=== PATIENT | female | born 1990 | race Caucasian/White ===

== ENCOUNTER → 2016-10-22 | Outpatient (CLI) | payer BC ==
[2016-04-12 15:00] VITALS: BP 107/64
[~2016-10-22] MED LIST: ONDA4TAB7 PO; SUMA100T4 PO
--- NOTE | 2016-10-22 10:25 | RAD ---
RIBS LEFT Clinical Indication: Upper left rib pain x1 week. No known trauma. Comparison: None. Findings: 3 views of the left ribs. Cardiomediastinal silhouette is normal. Visualized lungs are clear. No pleural abnormality. Cholecystectomy clips. Nonspecific bowel gas pattern. No acute displaced left rib fracture. No bone lesion. Left shoulder joint intact. IMPRESSION: No acute findings.
== END | disposition home or self-care (01) ==
LOC: RAD 09:44
PROVIDERS: ATTEND Nurse Practitioner Family
DX: R07.81 Pleurodynia (principal)
CPT/HCPCS: 71100

== ENCOUNTER → 2017-04-11 | Outpatient (CLI) | payer BC ==
[2016-04-12 15:00] VITALS: BP 107/64
[2017-04-11 10:42] LABS: BASO % 1 % (0-3); EOS # 0.1 x10^3/uL (0.0-0.7); EOS % 1 % (0-3); HEMATOCRIT 40.7 % (36.0-47.0); HEMOGLOBIN 13.9 g/dL (12.0-15.5); LYMPH % 24 % (24-48); MEAN CORPUSCULAR HEMOGLOBIN 30 pg (25-35); MEAN CORPUSCULAR HGB CONC 34 g/dL (31-37); MEAN CORPUSCULAR VOLUME 88 fL (79-100); MONO # 0.4 x10^3/uL (0.0-1.1); MONO % 5 % (0-9); NEUT # 5.8 x10^3uL (1.8-7.7); NEUT % 70 % (31-73); PLATELET COUNT 332 x10^3/uL (140-400); RED BLOOD COUNT 4.61 x10^6/uL (3.50-5.40); RED CELL DISTRIBUTION WIDTH 16.4 % (11.5-14.5); WHITE BLOOD COUNT 8.3 x10^3/uL (4.0-11.0)
[2017-04-11 10:43] LABS: CALCIUM 9.1 mg/dL (8.5-10.1); CREATININE 0.9 mg/dL (0.6-1.0); GFR 76.3; POTASSIUM 3.7 mmol/L (3.5-5.1)
== END | disposition home or self-care (01) ==
LOC: LAB 09:54
PROVIDERS: ATTEND Physician Assistant Medical
DX: L03.211 Cellulitis of face (principal); D64.9 Anemia, unspecified
CPT/HCPCS: 36415; 80048; 85025

== ENCOUNTER 2017-08-16 09:18 | Emergency (ER) | payer BC ==
[~2017-08-16] VITALS: Ht 160 cm; Wt 71.2 kg
[2017-08-16] MEDS ORDERED: IV NORMAL SALINE 1,000ML 1,000 ML IV ONE (09:30)
[2017-08-16] MEDS ORDERED: ONDANSETRON PF 4 MG/2 ML VIAL. IV ONE (09:45)
[2017-08-16 10:04] LABS: BASO % 1 % (0-3); EOS # 0.1 x10^3/uL (0.0-0.7); EOS % 2 % (0-3); HEMATOCRIT 37.3 % (36.0-47.0); HEMOGLOBIN 12.6 g/dL (12.0-15.5); LYMPH # 2.4 x10^3/uL (1.0-4.8); LYMPH % 42 % (24-48); MEAN CORPUSCULAR HEMOGLOBIN 31 pg (25-35); MEAN CORPUSCULAR HGB CONC 34 g/dL (31-37); MEAN CORPUSCULAR VOLUME 91 fL (79-100); MONO # 0.3 x10^3/uL (0.0-1.1); MONO % 6 % (0-9); NEUT # 2.8 x10^3uL (1.8-7.7); NEUT % 50 % (31-73); PLATELET COUNT 364 x10^3/uL (140-400); RED BLOOD COUNT 4.12 x10^6/uL (3.50-5.40); RED CELL DISTRIBUTION WIDTH 13.8 % (11.5-14.5); WHITE BLOOD COUNT 5.6 x10^3/uL (4.0-11.0)
[2017-08-16 10:05] LABS: PREG TEST PT QUAL NEGATIVE (NEG)
[2017-08-16 10:11] LABS: ALBUMIN 3.7 g/dL (3.4-5.0); CALCIUM 8.8 mg/dL (8.5-10.1); CREATININE 0.8 mg/dL (0.6-1.0); GFR 86.7; POTASSIUM 3.6 mmol/L (3.5-5.1); TOTAL BILIRUBIN 0.2 mg/dL (0.2-1.0); TOTAL PROTEIN 7.4 g/dL (6.4-8.2)
[2017-08-16 10:44] LABS: BILIRUBIN,URINE NEG (NEG); CLARITY,URINE TURBID; COLOR,URINE YELLOW; GLUCOSE,URINE NEG (NEG); NITRITE,URINE NEG (NEG); UROBILINOGEN,URINE 0.2 mg/dL (0.2 mg/dL)
[2017-08-16 10:45] LABS: BACTERIA,URINE MANY /HPF (0-FEW); SQUAMOUS EPITHELIAL CELL,UR MANY /LPF; WBC,URINE 20-40 /HPF (0-4)
--- NOTE | 2017-08-16 11:21 | ED.ADGEN ---
Past History Past Medical History: Anxiety, Bipolar, Depression, GERD, Migraines, UTI Past Surgical History: Gastric Bypass Alcohol Use: None Drug Use: None Adult General Chief Complaint Chief Complaint Abdominal pain, vomiting HPI HPI Patient is a 27-year-old female with complex abdominal history occluding LAP- BAND, LAP-BAND reversal, cholecystectomy, Clare-en-Y procedure who presents with mid abdominal pain and cramping with nausea and dry heaves. Symptoms began 1 hour prior to ED arrival while at work. Patient denies hematemesis coffee- ground emesis, bilious emesis. Denies dizziness lightheadedness. No chest pain shortness of breath. No fever chills or sweats. No constipation or diarrhea. No urinary frequency urgency. Reports vaginal discharge after using Kagle balls 1 week ago. No other acute symptoms or complaints.[] Review of Systems Review of Systems ROS as per HPI. All other systems were reviewed and found to be within normal limits, except as documented in this note. Current Medications Current Medications Current Medications Medications (Trade) Dose Ordered Sig/Autumn Start Time Stop Time Status Last Admin Dose Admin Fentanyl Citrate (Fentanyl 2ml Vial) 50 mcg 1X ONCE 08/16/17 09:45 08/16/17 09:46 DC 08/16/17 10:19 50 MCG Ondansetron HCl (Zofran) 4 mg 1X ONCE 08/16/17 09:45 08/16/17 09:46 DC 08/16/17 10:10 4 MG Sodium Chloride 1,000 ml @ 1,000 mls/hr 1X ONCE 08/16/17 09:30 08/16/17 10:29 DC 08/16/17 10:04 1,000 MLS/HR Allergies Allergies Allergies Coded Allergies Type Severity Reaction Last Updated Verified No Known Drug Allergies 08/16/17 No Physical Exam Physical Exam Constitutional: Well developed, well nourished, anxious. [] HENT: Normocephalic, atraumatic, bilateral external ears normal, oropharynx moist, nose normal. [] Eyes: PERRL. [] Neck: Normal range of motion. [] Cardiovascular:Heart rate regular rhythm, no murmur. [] Lungs & Thorax: Bilateral breath sounds clear to auscultation. [] Abdomen: Bowel sounds normal, soft, no tenderness. [] : Milky vaginal discharge, no lesions, minimal tenderness. [] Back: No tenderness. [] Extremities: No tenderness. [] Neurologic: Alert and oriented X 3, normal motor function, normal sensory function, no focal deficits noted. [] Psychologic: Affect normal, judgement normal, mood normal. [] Current Patient Data Vital Signs Vital Signs Date Time Temp Pulse Resp B/P (MAP) Pulse Ox O2 Delivery O2 Flow Rate FiO2 08/16/17 11:40 64 14 101/57 (72) 99 08/16/17 10:19 Room Air 08/16/17 09:30 97.4 Lab Results Laboratory Tests Test 08/16/17 09:40 08/16/17 10:00 White Blood Count 5.6 x10^3/uL (4.0-11.0) Red Blood Count 4.12 x10^6/uL (3.50-5.40) Hemoglobin 12.6 g/dL (12.0-15.5) Hematocrit 37.3 % (36.0-47.0) Mean Corpuscular Volume 91 fL (79-100) Mean Corpuscular Hemoglobin 31 pg (25-35) Mean Corpuscular Hemoglobin Concent 34 g/dL (31-37) Red Cell Distribution Width 13.8 % (11.5-14.5) Platelet Count 364 x10^3/uL (140-400) Neutrophils (%) (Auto) 50 % (31-73) Lymphocytes (%) (Auto) 42 % (24-48) Monocytes (%) (Auto) 6 % (0-9) Eosinophils (%) (Auto) 2 % (0-3) Basophils (%) (Auto) 1 % (0-3) Neutrophils # (Auto) 2.8 x10^3uL (1.8-7.7) Lymphocytes # (Auto) 2.4 x10^3/uL (1.0-4.8) Monocytes # (Auto) 0.3 x10^3/uL (0.0-1.1) Eosinophils # (Auto) 0.1 x10^3/uL (0.0-0.7) Basophils # (Auto) 0.0 x10^3/uL (0.0-0.2) Sodium Level 139 mmol/L (136-145) Potassium Level 3.6 mmol/L (3.5-5.1) Chloride Level 105 mmol/L (98-107) Carbon Dioxide Level 28 mmol/L (21-32) Anion Gap 6 (6-14) Blood Urea Nitrogen 14 mg/dL (7-20) Creatinine 0.8 mg/dL (0.6-1.0) Estimated GFR (Cockcroft-Gault) 86.7 BUN/Creatinine Ratio 18 (6-20) Glucose Level 70 mg/dL (70-99) Calcium Level 8.8 mg/dL (8.5-10.1) Total Bilirubin 0.2 mg/dL (0.2-1.0) Aspartate Amino Transferase (AST) 17 U/L (15-37) Alanine Aminotransferase (ALT) 20 U/L (14-59) Alkaline Phosphatase 75 U/L (46-116) Total Protein 7.4 g/dL (6.4-8.2) Albumin 3.7 g/dL (3.4-5.0) Albumin/Globulin Ratio 1.0 (1.0-1.7) Lipase 297 U/L (73-393) Serum Test, Qualitative Negative (NEG) Urine Collection Type Unknown Urine Color Yellow Urine Clarity Turbid Urine pH 7.5 Urine Specific [place] 1.025 Urine Protein 30 mg/dl (NEG-TRACE) Urine Glucose (UA) Neg mg/dL (NEG) Urine Ketones (Stick) Neg mg/dL (NEG) Urine Blood Small (NEG) Urine Nitrite Neg (NEG) Urine Bilirubin Neg (NEG) Urine Urobilinogen Dipstick 0.2 mg/dL (0.2 mg/dL) Urine Leukocyte Esterase Small (NEG) Urine RBC 3-5 /HPF (0-2) Urine WBC 20-40 /HPF (0-4) Urine Squamous Epithelial Cells Many /LPF Urine Bacteria Many /HPF (0-FEW) Microbiology 08/16/17 Wet Prep - Final, Complete EKG EKG [] Radiology/Procedures Radiology/Procedures [] Course & Med Decision Making Course & Med Decision Making Pertinent Labs and Imaging studies reviewed. (See chart for details) [Abdominal pain and nausea with dry heaving. Symptoms resolved in the emergency department treatment. Lab work reviewed and is reassuring. Recommend follow-up with PCP for vaginal culture results. Her precautions reviewed] Final Impression Final Impression [Abdominal pain, Nausea and vomiting Vaginal discharge] Problems: Dragon Disclaimer Dragon Disclaimer This electronic medical record was generated, in whole or in part, using a voice recognition dictation system. MONICA ARGUETA DO Aug 16, 2017 11:21
--- NOTE | 2017-08-16 13:02 | RAD ---
CHEST AP ONLY History: COUGH Comparison: None. Findings: Single view of the chest is submitted. There is no infiltrate, pneumothorax, or effusion. The pericardial cardiac silhouette is within normal limits in size. Impression: 1. There is no radiographic evidence of acute cardiopulmonary disease. Electronically signed by: German Abbasi MD (08/16/2017 12:58 PM) [id number]
[2017-08-16 13:14] VITALS: BP 113/53
== END 2017-08-16 13:15 | disposition home or self-care (01) ==
LOC: ER 09:18
DX: N89.8 Other specified noninflammatory disorders of vagina (principal); R10.9 Unspecified abdominal pain; R11.2 Nausea with vomiting, unspecified; F41.9 Anxiety disorder, unspecified; F31.9 Bipolar disorder, unspecified; K21.9 Gastro-esophageal reflux disease without esophagitis; G43.909 Migraine, unspecified, not intractable, without status migrainosus; Z87.440 Personal history of urinary (tract) infections; Z98.84 Bariatric surgery status
CPT/HCPCS: 36415; 71045; 80053; 81001; 83690; 84703; 85025; 87070; 87086; 96361; 96374; 96375; 99285; J2405; J3010; Q0111; J7030

== ENCOUNTER 2017-10-04 09:24 | Emergency (ER) | payer BC ==
[2017-10-04] MEDS ORDERED: DOXY100T PO (09:52)
[2017-10-04] MEDS ORDERED: ACYC800T PO ×2 (09:52→09:59)
[2017-10-04] MEDS ORDERED: MUPI15CR TP ×2 (09:52→09:59)
--- NOTE | 2017-10-04 09:52 | PHYS DOC ---
Past History Past Medical History: Anxiety, Hypotension, MRSA Past Surgical History: Gastric Bypass Alcohol Use: None Drug Use: None Adult General Chief Complaint Chief Complaint: WOUND CHECK HPI HPI Patient is a 27-year-old female who presents to the emergency department for evaluation of a wound on her chest wall. She states that for the past 5 days she developed a wound on the anterior aspect of her chest wall, which she states she initially thought was just a simple staph infection as she has had these before. But the wound has ruptured, and formed somewhat of a crater. The wound is approximately Rubi sized. There is mild surrounding erythema immediately surrounding the area. It is not particularly tender and there is currently no fluctuant. She has been afebrile. The patient states she did have an outbreak of shingles on her face a few weeks ago, and had another similar wound on her hairline several weeks ago as well which she saw her primary care provider, Dr. May for , and was given several antibiotics of which she is uncertain of the names. She denies any other lesions or rashes at this time. There are no alleviating or exacerbating factors to her symptoms. Review of Systems Review of Systems Constitutional: Denies fever or chills [] Eyes: Denies change in visual acuity, redness, or eye pain [] Respiratory: Denies cough or shortness of breath [] GI: Denies abdominal pain, nausea, vomiting, bloody stools or diarrhea [] : Denies dysuria or hematuria [] Musculoskeletal: Denies back pain or joint pain [] Integument: Denies any other current skin rash or skin lesions [] Neurologic: Denies headache, focal weakness or sensory changes [] Allergies Allergies Allergies Coded Allergies Type Severity Reaction Last Updated Verified No Known Drug Allergies 08/16/17 No Physical Exam Physical Exam PHYSICAL EXAM: CONSTITUTIONAL: Well developed, well nourished HEAD: normocephalic, atraumatic EENT: PERRL, EOMI. Conjunctivae normal color, sclerae non-icteric; moist mucous membranes. There are faint hyperpigmented areas on the right side of the face, which the patient states her covering shingles lesions. NECK: Supple, non-tender; no meningismus. LUNGS: Lungs CTA, breathing even and unlabored. Normal air movement. HEART: Regular rate and rhythm, no murmur CHEST: No deformity; non-tender ABDOMEN: The abdomen is soft, and non-tender, no masses or bruits. EXTREM: Normal ROM; no deformity, no calf tenderness. Normal pulses palpable in all extremities. There is no pedal edema. SKIN: On the anterior chest wall, about an inch below the clavicle and about an inch or 2 left of the midline, there is a crater-type lesion about urbi-sized, with a small rim of surrounding erythema. There is granulation tissue at the base of the crater wound. There is no fluctuance, and the area is not particular tender. No other rash; no diaphoresis NEURO: Alert; normal speech and cognition; CN's grossly intact; strength grossly intact without focal deficit. BACK: No CVA TTP. EKG EKG [] Radiology/Procedures Radiology/Procedures [] Course & Med Decision Making Course & Med Decision Making I'm uncertain of the etiology of the patient's wound. I will obtain both a viral and bacterial culture. I'll start the patient on another course of antiviral medications, as well as antibiotics, topical and oral. I discussed the use of Hibiclens soap to potentially eradicate staph bacteria from the patient's condition has had similar lesions in the past. I also stressed importance of follow-up with her PCP as well as a wound care center. Return precautions were discussed in detail. Dragon Disclaimer Dragon Disclaimer This electronic medical record was generated, in whole or in part, using a voice recognition dictation system. Departure Departure: Impression: Primary Impression: Open wound of chest wall Disposition: HOME, SELF-CARE Condition: STABLE Referrals: YELENA TORREZ (PCP) Patient Instructions: Wound Care, [id number], Wound Infection Additional Instructions: Follow-up with your primary care provider for further evaluation, as well as the Wound Center at [facility], [phone]. Please call us scheduled appointments. Scripts Acyclovir (ACYCLOVIR) 800 Mg Tablet 1 TAB PO 5XDAY, #35 TAB Prov: GLEN COATES MD 10/04/17 Mupirocin Calcium (BACTROBAN) 15 Gm Cream..g. 1 CEASAR TP TID, #30 GM Prov: GLEN COATES MD 10/04/17 Doxycycline Hyclate (DOXYCYCLINE HYCLATE) 100 Mg Capsule 1 CAP PO BID, #14 CAP Prov: GLEN COATES MD 10/04/17 Acyclovir (ACYCLOVIR) 800 Mg Tablet 800 MG PO 5XDAY for 7 Days, #35 TAB Prov: GLEN COATES MD 10/04/17 Mupirocin Calcium (BACTROBAN) 15 Gm Cream..g. 1 CEASAR TP TID, #30 GM Prov: GLEN COATES MD 10/04/17 Doxycycline Hyclate (DOXYCYCLINE HYCLATE) 100 Mg Tablet 1 TAB PO BID, #14 TAB Prov: GLEN COATES MD 10/04/17 GLEN COATES MD Oct 04, 2017 09:52
[2017-10-04] MEDS ORDERED: DOXY100C2 PO (09:59)
[2017-10-04 10:29] VITALS: BP 123/74
== END 2017-10-04 10:30 | disposition home or self-care (01) ==
LOC: ER 09:24
DX: S21.102A Unspecified open wound of left front wall of thorax without penetration into thoracic cavity, initial encounter (principal); F41.9 Anxiety disorder, unspecified; Z86.14 Personal history of Methicillin resistant Staphylococcus aureus infection; X58.XXXA Exposure to other specified factors, initial encounter; Y93.89 Activity, other specified; Y99.8 Other external cause status; Y92.89 Other specified places as the place of occurrence of the external cause
CPT/HCPCS: 87070; 87252; 99284

== ENCOUNTER 2018-03-30 17:01 | Emergency (ER) | payer BC ==
[~2018-03-30] VITALS: Ht 160 cm; Wt 59.9 kg
[~2018-03-30 17:01] MED LIST changes: +ACYC800T PO; +DOXY100C2 PO; +DOXY100T PO; +MUPI15CR TP
[2018-03-30] MEDS ORDERED: IV NORMAL SALINE 1,000ML 1,000 ML IV ONE (17:15)
--- NOTE | 2018-03-30 17:29 | EKG ---
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
[2018-03-30 17:39] LABS: BASO % 1 % (0-3); EOS % 1 % (0-3); HEMATOCRIT 33.1 % (36.0-47.0); HEMOGLOBIN 10.9 g/dL (12.0-15.5); LYMPH # 2.9 x10^3/uL (1.0-4.8); LYMPH % 53 % (24-48); MEAN CORPUSCULAR HEMOGLOBIN 29 pg (25-35); MEAN CORPUSCULAR HGB CONC 33 g/dL (31-37); MEAN CORPUSCULAR VOLUME 87 fL (79-100); MONO # 0.5 x10^3/uL (0.0-1.1); MONO % 10 % (0-9); NEUT # 1.9 x10^3uL (1.8-7.7); NEUT % 36 % (31-73); PLATELET COUNT 339 x10^3/uL (140-400); RED CELL DISTRIBUTION WIDTH 14.1 % (11.5-14.5); WHITE BLOOD COUNT 5.4 x10^3/uL (4.0-11.0)
[2018-03-30 17:54] LABS: ALBUMIN 3.9 g/dL (3.4-5.0); ALBUMIN/GLOBULIN RATIO 1.1 (1.0-1.7); CALCIUM 8.8 mg/dL (8.5-10.1); CREATININE 0.9 mg/dL (0.6-1.0); GFR 75.7; POTASSIUM 3.4 mmol/L (3.5-5.1); TOTAL BILIRUBIN 0.4 mg/dL (0.2-1.0); TOTAL PROTEIN 7.4 g/dL (6.4-8.2)
[2018-03-30 18:05] LABS: AMPHETAMINE/METHAMPHETAMINE POS (NEG); BARBITURATES NEG (NEG); BENZODIAZEPINES POS (NEG); CANNABINOIDS NEG (NEG); COCAINE NEG (NEG); METHADONE NEG (NEG); OPIATES NEG (NEG); PHENCYCLIDINE NEG (NEG)
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
[2018-03-30 18:15] LABS: BILIRUBIN,URINE SMALL (NEG); CLARITY,URINE CLOUDY; COLOR,URINE BROWN; GLUCOSE,URINE NEG (NEG)
[2018-03-30 18:16] LABS: NITRITE,URINE NEG (NEG); UROBILINOGEN,URINE 0.2 mg/dL (0.2 mg/dL)
[2018-03-30 18:27] VITALS: BP 164/84
== END 2018-03-30 18:50 | disposition home or self-care (01) ==
LOC: ER 17:01
DX: E87.6 Hypokalemia (principal); D64.9 Anemia, unspecified; R42 Dizziness and giddiness; G89.29 Other chronic pain; M54.89 Other dorsalgia
CPT/HCPCS: 36415; 80053; 80307; 81003; 81025; 85025; 93005; 99284; G0480

== ENCOUNTER 2018-12-18 16:18 | Emergency (ER) | payer BC ==
[~2018-12-18] VITALS: Ht 160 cm; Wt 59.9 kg
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
[2018-12-18 17:21] LABS: BASO % 0 % (0-3); EOS % 1 % (0-3); HEMATOCRIT 29.9 % (36.0-47.0); HEMOGLOBIN 9.9 g/dL (12.0-15.5); LYMPH # 1.6 x10^3/uL (1.0-4.8); LYMPH % 21 % (24-48); MEAN CORPUSCULAR HEMOGLOBIN 28 pg (25-35); MEAN CORPUSCULAR HGB CONC 33 g/dL (31-37); MEAN CORPUSCULAR VOLUME 85 fL (79-100); MONO # 0.4 x10^3/uL (0.0-1.1); MONO % 6 % (0-9); NEUT # 5.4 x10^3uL (1.8-7.7); NEUT % 72 % (31-73); PLATELET COUNT 332 x10^3/uL (140-400); RED BLOOD COUNT 3.51 x10^6/uL (3.50-5.40); RED CELL DISTRIBUTION WIDTH 18.8 % (11.5-14.5); WHITE BLOOD COUNT 7.5 x10^3/uL (4.0-11.0)
--- NOTE | 2018-12-18 18:25 | EKG ---
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
--- NOTE | 2018-12-18 18:39 | RAD ---
Exam: Chest one view INDICATION: Shortness of breath TECHNIQUE: Frontal view of the chest Comparisons: 08/16/2018 FINDINGS: The cardiomediastinal silhouette and pulmonary vessels are within normal limits. The lung and pleural spaces are clear. IMPRESSION: No acute cardiopulmonary process. Electronically signed by: Joey Langford MD (12/18/2018 6:36 PM) [facility]
[2018-12-18 18:45] LABS: BARBITURATES NEG (NEG); BENZODIAZEPINES POS (NEG); CANNABINOIDS NEG (NEG); COCAINE NEG (NEG); METHADONE NEG (NEG); OPIATES NEG (NEG); PHENCYCLIDINE NEG (NEG)
[2018-12-18 18:48] LABS: AMPHETAMINE/METHAMPHETAMINE POS (NEG)
[2018-12-18 18:57] LABS: ALBUMIN 3.8 g/dL (3.4-5.0); ALBUMIN/GLOBULIN RATIO 1.3 (1.0-1.7); CALCIUM 9.1 mg/dL (8.5-10.1); CREATININE 0.6 mg/dL (0.6-1.0); GFR 119.9; POTASSIUM 3.3 mmol/L (3.5-5.1); TOTAL BILIRUBIN 0.3 mg/dL (0.2-1.0); TOTAL PROTEIN 6.7 g/dL (6.4-8.2)
[2018-12-18 19:40] VITALS: BP 106/60
[2018-12-19] MEDS ORDERED: ALPR1TAB6 PO (06:06)
[2018-12-19] MEDS ORDERED: OMEP20TA8 PO (06:06)
[2018-12-19] MEDS ORDERED: DEXT30TA16 PO (06:06)
[2018-12-19] MEDS ORDERED: SUCR1ORA5 PO (06:06)
== END 2018-12-18 19:40 | disposition home or self-care (01) ==
LOC: ER 16:18
DX: O99.281 Endocrine, nutritional and metabolic diseases complicating pregnancy, first trimester (principal); E87.6 Hypokalemia; R06.02 Shortness of breath; R79.1 Abnormal coagulation profile; K21.9 Gastro-esophageal reflux disease without esophagitis; G43.909 Migraine, unspecified, not intractable, without status migrainosus; F43.10 Post-traumatic stress disorder, unspecified; O99.331 Smoking (tobacco) complicating pregnancy, first trimester; Z90.49 Acquired absence of other specified parts of digestive tract; Z3A.12 12 weeks gestation of pregnancy; Z88.1 Allergy status to other antibiotic agents
CPT/HCPCS: 36415; 71045; 80053; 80307; 83690; 84484; 85025; 85379; 93005; 99285

== ENCOUNTER 2018-12-19 03:51 | Observation (INO) | payer BC ==
[~2018-12-19] VITALS: Ht 162.6 cm; Wt 61.8 kg
--- NOTE | 2018-12-19 04:12 | PHYS DOC ---
Past History Past Medical History: Anxiety, Depression, Endometriosis, GERD, Migraines, Other Additional Past Medical Histor: PTSD Past Surgical History: Cholecystectomy, Other Additional Past Surgical Histo: gastric bypass and complications Smoking: Cigarettes Alcohol Use: None Drug Use: None Adult General Chief Complaint Chief Complaint: shortness of breath HPI HPI 28-year-old female 12 weeks returns emergency room with continued shortness of breath and chest discomfort. The patient was seen by my colleague several hours ago. I took the patient at sign out. She had an elevated d-dimer, but elected to go home and follow-up with OB tomorrow. The patient continued to have SOB and chest pain after going home, so she decided to return to the hospital for admission and likely VQ scan to rule out PE later in the day. See note from 12/18/18 for more details about her previous visit. Review of Systems Review of Systems Constitutional: Denies fever or chills [] Eyes: Denies change in visual acuity, redness, or eye pain [] HENT: Denies nasal congestion or sore throat [] Respiratory: shortness of breath [] Cardiovascular: No additional information not addressed in HPI [] GI: Denies abdominal pain, nausea, vomiting, bloody stools or diarrhea [] : Denies dysuria or hematuria [] Musculoskeletal: Denies back pain or joint pain [] Integument: Denies rash or skin lesions [] Neurologic: Denies headache, focal weakness or sensory changes [] Endocrine: Denies polyuria or polydipsia [] All other systems were reviewed and found to be within normal limits, except as documented in this note. Allergies Allergies Allergies Coded Allergies Type Severity Reaction Last Updated Verified clindamycin Allergy Unknown 12/18/18 Yes vancomycin Allergy Unknown 12/18/18 Yes Physical Exam Physical Exam Constitutional: Well developed, well nourished, no acute distress, non-toxic appearance. [] HENT: Normocephalic, atraumatic, bilateral external ears normal, oropharynx moist, no oral exudates, nose normal. [] Eyes: PERRLA, EOMI, conjunctiva normal, no discharge. [] Neck: Normal range of motion, no tenderness, supple, no stridor. [] Cardiovascular:Heart rate regular rhythm, no murmur [] Lungs & Thorax: Bilateral breath sounds clear to auscultation [] Abdomen: Bowel sounds normal, soft, no tenderness, no masses, no pulsatile masses. [] Skin: Warm, dry, no erythema, no rash. [] Back: No tenderness, no CVA tenderness. [] Extremities: No tenderness, no cyanosis, no clubbing, ROM intact, no edema. [] Neurologic: Alert and oriented X 3, normal motor function, normal sensory function, no focal deficits noted. [] Psychologic: Affect normal, judgement normal, mood anxious. [] EKG EKG Sinus rhythm, rate 86, normal axis, no ST elevations or depressions.[] Radiology/Procedures Radiology/Procedures [] Course & Med Decision Making Course & Med Decision Making Pertinent Labs and Imaging studies reviewed. (See chart for details) Patient's previous total screen was positive for methamphetamine. Patient did tell me that she takes Adderall for ADHD. I spoke with Dr. Dickerson and he has accepted the patient for admission. [] Dragon Disclaimer Dragon Disclaimer This electronic medical record was generated, in whole or in part, using a voice recognition dictation system. Departure Departure: Impression: Primary Impression: Additional Impressions: Shortness of breath Elevated d-dimer Anemia Disposition: ADMITTED INPATIENT Admitting Physician: Andres Dickerson Condition: STABLE Referrals: YELENA TORREZ (PCP) Problem Qualifiers Primary Impression: Weeks of gestation: 12 weeks Qualified Codes: Z3A.12 - 12 weeks gestation of Additional Impressions: Anemia Anemia type: unspecified type Qualified Codes: D64.9 - Anemia, unspecified MONICA MCMAHON DO Dec 19, 2018 04:12
[2018-12-19 04:22] LABS: BASO % 0 % (0-3); EOS % 1 % (0-3); HEMATOCRIT 29.6 % (36.0-47.0); HEMOGLOBIN 9.8 g/dL (12.0-15.5); LYMPH # 1.4 x10^3/uL (1.0-4.8); LYMPH % 21 % (24-48); MEAN CORPUSCULAR HEMOGLOBIN 28 pg (25-35); MEAN CORPUSCULAR HGB CONC 33 g/dL (31-37); MEAN CORPUSCULAR VOLUME 86 fL (79-100); MONO # 0.6 x10^3/uL (0.0-1.1); MONO % 9 % (0-9); NEUT # 4.6 x10^3uL (1.8-7.7); NEUT % 69 % (31-73); PLATELET COUNT 296 x10^3/uL (140-400); RED BLOOD COUNT 3.45 x10^6/uL (3.50-5.40); RED CELL DISTRIBUTION WIDTH 18.6 % (11.5-14.5); WHITE BLOOD COUNT 6.7 x10^3/uL (4.0-11.0)
[2018-12-19] MEDS ORDERED: ONDANSETRON PF 4 MG/2 ML VIAL. IV ONE (04:30)
[2018-12-19] MEDS ORDERED: ONDANSETRON PF 4 MG/2 ML VIAL. IV PRN (04:30)
[2018-12-19] MEDS ORDERED: MORPHINE SULFATE 2 MG/ML DISP.SYRIN. IV ONE (04:30)
[2018-12-19 04:36] LABS: ALBUMIN 3.1 g/dL (3.4-5.0); CALCIUM 8.4 mg/dL (8.5-10.1); CREATININE 0.6 mg/dL (0.6-1.0); GFR 119.9; POTASSIUM 3.1 mmol/L (3.5-5.1); TOTAL BILIRUBIN 0.2 mg/dL (0.2-1.0); TOTAL PROTEIN 6.2 g/dL (6.4-8.2)
[2018-12-19] MEDS ORDERED: IV NORMAL SALINE 1,000ML 1,000 ML IV ONE (05:00)
[2018-12-19] MEDS ORDERED: POTASSIUM CHLORIDE 20 MEQ TABLET.ER. PO ONE (05:00)
[2018-12-19 06:02] VITALS: BP 97/64
[2018-12-19] MEDS ORDERED: OMEP20TA8 PO (06:06)
[2018-12-19] MEDS ORDERED: SUCR1ORA5 PO (06:06)
[2018-12-19] MEDS ORDERED: DEXT30TA16 PO (06:06)
[2018-12-19] MEDS ORDERED: ALPR1TAB6 PO (06:06)
[2018-12-19] MEDS ORDERED: IV NORMAL SALINE 500ML 500 ML IV ONE (07:30)
[2018-12-19] MEDS: MORPHINE SULFATE 2 MG/ML DISP.SYRIN. IV PRN ×3 (08:07→16:09)
[2018-12-19] MEDS ORDERED: HYDROmorphone PF 2 MG/ML VIAL IV ONE (10:45)
[2018-12-19 11:09] VITALS: BP 102/65
--- NOTE | 2018-12-19 12:28 | RAD ---
NUCLEAR MEDICINE PERFUSION SCAN History: Shortness of air, elevated d-dimer, chest pain. Patient is 12 weeks . Comparison: AP chest, prior day. Technique: Study protocoled by different radiologist. Perfusion portion performed after intravenous administration of 2.4 mCi Technetium 99m MAA. Multiple projection planar images of the lungs were obtained. Findings: Perfusion images demonstrate no segmental perfusion defects. IMPRESSION: Normal pulmonary perfusion. Electronically signed by: Juan J Ruiz MD (12/19/2018 12:25 PM) [id number]
[2018-12-19 14:58] VITALS: BP 102/68
--- NOTE | 2018-12-19 18:20 | SSS ---
ADMIT DATE: 12/19/2018 HISTORY OF PRESENT ILLNESS: The patient is a 28-year-old female patient, 4, para 3. She is 12 weeks and she came to the Emergency Room complaining of shortness of breath and left-sided chest discomfort. She had an elevated D-dimer, but elected to go home and follow up with her mixer and scaler, clerk travel reservations and the patient continued to have shortness of breath and chest pain after going home, so she decided to return to the hospital for admission and likely V/Q scan to rule out PE later on day. She was in fact admitted and has had a V/Q scan, showed the patient has normal pulmonary perfusion; however, the patient was complaining of severe pain, worse on taking a deep breath and therefore a decision was made to transfer her to [facility] to consult the clerk travel reservations, pain management and appliance sales associate. PAST MEDICAL HISTORY: She has anxiety, depression, endometriosis, gastroesophageal reflux disease, migraine headache. She has also posttraumatic stress disorder. PAST SURGICAL HISTORY: Significant for gastric bypass surgery with complications and cholecystectomy. FAMILY HISTORY: Noncontributory. SOCIAL HISTORY: She apparently is single. Does not smoke, drink alcohol or use any recreational drugs. REVIEW OF SYSTEMS: As per history of present illness. ALLERGIES: She is allergic to CLINDAMYCIN and VANCOMYCIN. MEDICATIONS: She is currently on amphetamine salt 30 mg twice a day for ADHD, alprazolam 1 mg 3 times a day, ondansetron 4 mg every 8 hours, sucralfate 1 gram twice a day and omeprazole 20 mg daily. PHYSICAL EXAMINATION: GENERAL: When examined here, the patient was resting slightly propped up, crying in severe pain in her left side of the chest. She has no obvious bruising or blisters of shingles that can be seen. Palpating the area does not elicit any pain; however, the patient has stated that the pain is worse taking a deep breath. She was pale, cachectic, but no jaundice, cyanosis or thyromegaly. No jugular venous distension. No limb edema. VITAL SIGNS: Her heart rate was 78, blood pressure was 102/65, temperature was 98, respiratory rate 20 and oxygen saturation was 94%. HEAD, EYES, EARS, NOSE AND THROAT: Normocephalic, atraumatic. NECK: Supple. HEART: Showed normal first and second heart sounds. No gallop, rub or murmur. CHEST: Shows central trachea, equal bilateral expansion, air entry, vesicular sounds. No crepitation or rhonchi. ABDOMEN: Distended, soft, nontender. No guarding or rigidity. No organomegaly. All hernial orifices intact. Bowel sounds normal. NEUROLOGIC: She was awake, alert, responding appropriately. All cranial nerves intact. EXTREMITIES: She moves extremities without difficulty. LABORATORY DATA: Showed a white cell count of 6700, hemoglobin 9.8, hematocrit 29.6, MCV 86 and platelet count 296,000. Her chemistry showed a serum sodium 139, potassium 3.1, chloride 105, bicarbonate 25, anion gap of 9, BUN 7, creatinine 0.6, estimated GFR was 120 mL per minute. Her glucose was 60, calcium was 8.4. Total bilirubin, AST, ALT, alkaline phosphatase were normal. Total protein 6.2, albumin 3.1. Her nasal screen for MRSA PCR was negative. Maternal human coronary gonadotropin beta subunit was 119,338. The patient did have pulmonary perfusion study, which showed that perfusion images demonstrated no segmental perfusion defects. The impression is that the patient has normal pulmonary perfusion. Given the patient continued to complain of severe pain and she is , the plan is to transfer her to [facility] to continue on morphine and Zofran together with her other medications. FINAL DISCHARGE DIAGNOSES: 1. Severe left-sided chest pain, the cause of which is not clear to me. 2. at 12 weeks' duration. 3. The patient has attention deficit and hyperactivity disorders. 4. She is status post bariatric surgery. SVETLANA JOHNSON MD DR: DIANA/edel JOB#: [id number] / [id number]
[2018-12-19 19:53] VITALS: BP 94/62
[2018-12-19 23:04] VITALS: BP 96/65
--- NOTE | 2018-12-20 06:24 | EKG ---
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
== END 2018-12-19 23:15 | disposition short-term general hospital (02) ==
LOC: ER 03:51 → 1 SOUTH 04:24 → INTOOBSV 04:24
PROVIDERS: ADMIT Internal Medicine; ATTEND Internal Medicine
DX: O26.891 Other specified pregnancy related conditions, first trimester (principal); R07.89 Other chest pain; R06.02 Shortness of breath; O99.611 Diseases of the digestive system complicating pregnancy, first trimester; O99.011 Anemia complicating pregnancy, first trimester; O99.841 Bariatric surgery status complicating pregnancy, first trimester; O99.341 Other mental disorders complicating pregnancy, first trimester; F41.9 Anxiety disorder, unspecified; F32.9 Major depressive disorder, single episode, unspecified; K21.9 Gastro-esophageal reflux disease without esophagitis; F43.10 Post-traumatic stress disorder, unspecified; D64.9 Anemia, unspecified; F90.9 Attention-deficit hyperactivity disorder, unspecified type; Z87.891 Personal history of nicotine dependence; Z3A.12 12 weeks gestation of pregnancy
CPT/HCPCS: 36415; 71045; 78580; 80053; 80307; 82947; 83690; 84484; 84702; 85025; 85379; 87641; 93005; 96374; 96375; 96376; 99284; A9540; G0378; J1170; J2270; J2405; J7040; G0379; J7030

== ENCOUNTER → 2021-03-03 | Outpatient (CLI) | payer BC, MEDICAID, OTHER ==
[~2021-03-03] MED LIST changes: -ACYC800T PO; +ACYC800T88 PO; +ALPR1TAB6 PO; +DEXT30TA16 PO; -DOXY100C2 PO; +DOXY100C3 PO; +OMEP20TA8 PO; +SUCR1ORA5 PO
--- NOTE | 2021-03-03 12:59 | RAD ---
EXAM: XR THORACIC SPINE 3VIEWS 03/03/2021 9:26 AM CLINICAL INDICATION: Disability determination COMPARISON: None TECHNIQUE: AP, lateral, and swimmer's views of the thoracic spine FINDINGS: There is no acute fracture. Alignment is normal. There is no measurable scoliosis. No sign ificant disc space narrowing. There are cholecystectomy clips in the right upper quadrant. Suture mat erial seen left upper quadrant. IMPRESSION: No acute osseous abnormality or significant degenerative disc disease of the thoracic sp ine. Electronically signed by: Neli Winkler MD (03/03/2021 12:57 PM) [id number]
== END ==
LOC: CT 09:02
PROVIDERS: ATTEND Family Medicine
DX: Z02.71 Encounter for disability determination (principal); M54.9 Dorsalgia, unspecified; Z90.49 Acquired absence of other specified parts of digestive tract
CPT/HCPCS: 72072